=== PATIENT | male | born 1970 ===

== ENCOUNTER 2019-01-05 10:39 | Emergency (ER) | payer OTHER ==
[2019-01-05 10:44] VITALS: TEMP 99.2
[2019-01-05 10:45] VITALS: BMI 24.3
[2019-01-05] MEDS ORDERED: Fluorescein 1 mg Ophthalmic Strip ONE (11:22)
[2019-01-05] MEDS ORDERED: Fluorescein 1 mg Ophthalmic Strip OD ONE (11:31)
[2019-01-05] MEDS ORDERED: Tdap Vaccine 0.5 ml Vial (10-64 yrs) IM ONE ×2 (11:51→12:11)
--- NOTE | 2019-01-05 11:52 | ED PDOC ---
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 ) Past Medical History Reviewed: Historical Data, Nursing Documentation, Vital Signs Vital Signs: Last Vital Signs Temp 99.2 F 01/05/19 10:44 Pulse 97 H 01/05/19 10:44 Resp 19 01/05/19 10:44 BP 144/95 H 01/05/19 10:44 Pulse Ox 98 01/05/19 10:44 - Family History Family History: States: No Known Family Hx - Home Medications Home Medications: Ambulatory Orders Medication Instructions Recorded No Known Home Med 01/05/19 - Allergies Allergies/Adverse Reactions: Allergies Allergy/AdvReac Type Severity Reaction Status Date / Time No Known Allergies Allergy Verified 01/05/19 11:09 Review of Systems ROS Statement: Except As Marked, All Systems Reviewed And Found Negative Physical Exam - Reviewed Nursing Documentation Reviewed: Yes Vital Signs Reviewed: Yes (Right eye 20/200; L 20/50: both 20/40) - Physical Exam Appears: Positive for: Well, Non-toxic, No Acute Distress Head Exam: Positive for: ATRAUMATIC, NORMAL INSPECTION, NORMOCEPHALIC Skin: Positive for: Normal Color, Warm, DRY Eye Exam: Positive for: EOMI, PERRL, Other (fluorescein uptake noted by foreign body). Negative for: Normal appearance (right eye foreign body noted with surrounding white appearance by pupil) ENT: Positive for: Normal ENT Inspection Neck: Positive for: Normal, Painless ROM Cardiovascular/Chest: Positive for: Regular Rate, Rhythm Respiratory: Positive for: CNT, Normal Breath Sounds Gastrointestinal/Abdominal: Positive for: Normal Exam, Soft Back: Positive for: Normal Inspection Extremity: Positive for: Normal ROM Neurological/Psych: Positive for: Awake, Alert, Normal Tone - ECG O2 Sat by Pulse Oximetry: 98 - Progress ED Course And Treament: procedure. Verbal consent prior to procedure. tetracaine drop placed right eye. attempt made to remove material with 18 g needle partially successful d/w dr. bee. erythromycin ointment to be applied with eyepatch. Patient to f/u with Dr. Bee tomorrow at 9am.. Disposition - Clinical Impression Clinical Impression: Foreign body in eye - Patient ED Disposition Is Patient to be Admitted: No - Disposition Referrals: Adrian Bee MD [Staff Provider] - Disposition: Routine/Home Disposition Time: 12:26 Condition: FAIR Additional Instructions: NECESITA IR AL OFICINA DE DR MARY KATE JANE A LAS 9AM Instructions: Foreign Body in Eye (DC) Forms: [facility] ED School/Work Excuse Print Language: [place]
[2019-01-05] MEDS ORDERED: Tobramycin 0.3% OPH OINT OD STA (12:00)
[2019-01-05] MEDS ORDERED: Erythromycin 0.5% Ophth Oint 1 APPLIC/3.5 G OD STA (12:25)
[2019-01-05 12:57] VITALS: BP 135/84; PULSE 84; RESP 18; O2SAT 99
== END 2019-01-05 12:27 | disposition home or self-care (01) ==
LOC: H.ER 10:39
DX: S05.91XA Unspecified injury of right eye and orbit, initial encounter (principal); Y99.0 Civilian activity done for income or pay